=== PATIENT | male | born 2000 | race Caucasian/White ===

== ENCOUNTER 2018-01-30 00:49 | Emergency (ER) | payer MEDICAID ==
[~2018-01-30] VITALS: Ht 167.6 cm; Wt 80.0 kg
[2018-01-30] MEDS ORDERED: IBUPROFEN 600MG TABLET PO ONE (01:30)
[2018-01-30] MEDS ORDERED: AMOXICILLIN/POTASSIUM CLAVULANATE 875/125MG TAB PO ONE (01:30)
[2018-01-30] MEDS ORDERED: TETANUS, DIPHTHERIA, PERTUSSIS VAC/PF 0.5ML (>7YR OLD) IM ONE (08:15)
[2018-01-30] MEDS ORDERED: BACITRACIN ZINC OINT UDPKT TOP ONE (08:15)
[2018-01-30] MEDS ORDERED: LIDOCAINE HCL 1% 20ML VIAL (Pyxis) INJ MC ONE (08:45)
[2018-01-30] MEDS ORDERED: CEFTRIAXONE SODIUM 250 MG/VIAL IM ONE (08:45)
[2018-01-30] MEDS: LIDOCAINE HCL/PF 1% 10 MG/ML 5ML VIAL INL NR ×2 (09:23→10:40)
[2018-01-30] MEDS ORDERED: MORPHINE SULFATE 4 MG/ML CPJ (NOT FOR IM USE) IV STA (09:36)
[2018-01-30] MEDS ORDERED: ONDANSETRON HCL 4MG/2ML VIAL IV STA (09:36)
[2018-01-30] MEDS ORDERED: IBUPROFEN 200MG TABLET ONE (12:00)
[2018-01-30 13:42] VITALS: BP 110/62
== END 2018-01-30 14:10 | disposition short-term general hospital (02) ==
LOC: ER 00:49
DX: S62.634A Displaced fracture of distal phalanx of right ring finger, initial encounter for closed fracture (principal); S69.82XA Other specified injuries of left wrist, hand and finger(s), initial encounter; W54.0XXA Bitten by dog, initial encounter; Y93.89 Activity, other specified; Y92.410 Unspecified street and highway as the place of occurrence of the external cause; Z23 Encounter for immunization
CPT/HCPCS: 73130; 90471; 90715; 96372; 99285; J0696; J3490; J2270; J2405